=== PATIENT | female | born 1965 | race African-American/Black ===

== ENCOUNTER 2019-04-30 16:24 | Emergency (ER) | payer OTHER ==
[~2019-04-30] VITALS: Ht 177.8 cm; Wt 84.0 kg
[~2019-04-30 16:24] MED LIST: ACET325T9 PO; NAPR220C62 PO
[2019-04-30] MEDS ORDERED: IV NORMAL SALINE 1000ML BAG 1,000 ML IV SCH (18:39)
[2019-04-30] MEDS ORDERED: HYDROmorphone 2 MG/ML VIAL IV ONE ×2 (18:45→19:15)
[2019-04-30] MEDS ORDERED: ONDANSETRON PF 4 MG/2 ML VIAL. IVP ONE (18:45)
[2019-04-30 18:55] LABS: BASO % 1 % (0-3); EOS # 0.1 x10^3/uL (0.0-0.7); EOS % 2 % (0-3); HEMATOCRIT 41.4 % (36.0-47.0); HEMOGLOBIN 13.5 g/dL (12.0-15.5); LYMPH # 1.2 x10^3/uL (1.0-4.8); LYMPH % 22 % (24-48); MEAN CORPUSCULAR HEMOGLOBIN 30 pg (25-35); MEAN CORPUSCULAR HGB CONC 33 g/dL (31-37); MEAN CORPUSCULAR VOLUME 91 fL (79-100); MONO # 0.4 x10^3/uL (0.0-1.1); MONO % 8 % (0-9); NEUT # 3.8 x10^3/uL (1.8-7.7); NEUT % 68 % (31-73); PLATELET COUNT 343 x10^3/uL (140-400); RED BLOOD COUNT 4.57 x10^6/uL (3.50-5.40); WHITE BLOOD COUNT 5.6 x10^3/uL (4.0-11.0)
[2019-04-30 19:05] LABS: PROTHROMBIN TIME PATIENT 13.4 SEC (11.7-14.0)
[2019-04-30 19:42] LABS: CALCIUM 9.3 mg/dL (8.5-10.1); CREATININE 0.6 mg/dL (0.6-1.0); GFR 125.6; POTASSIUM 3.6 mmol/L (3.5-5.1)
[2019-04-30 19:47] LABS: ALBUMIN 3.1 g/dL (3.4-5.0); ALBUMIN/GLOBULIN RATIO 0.7 (1.0-1.7); C-REACTIVE PROTEIN 13.3 mg/L (0-3.3); TOTAL BILIRUBIN 0.3 mg/dL (0.2-1.0); TOTAL PROTEIN 7.3 g/dL (6.4-8.2)
[2019-04-30] MEDS ORDERED: OXYC1TAB15 PO (20:38)
--- NOTE | 2019-04-30 20:39 | PHYS DOC ---
Past Medical History Past Medical History: Hypertension, Other Additional Past Medical Histor: L LOWER LEG WOUND Past Surgical History: Hysterectomy, Other Additional Past Surgical Histo: KNEE/ANKLE Smoking Status: Current Every Day Smoker Additional Information: 1.5 CIGARETTES A DAY Alcohol Use: Occasionally Adult General Chief Complaint Chief Complaint: LOWEREXTREMITY INJURY [facility] HPI Patient is a 53 year old female who presents to the ED today complaining of 10 out of 10 left leg pain, patient states symptoms have been going on for 2 months. Patient reports having a wound on the left leg that began 2 months ago after she scratched her leg on a metal piece. Patient reports being seen in the hospital on April 07, 2019 and being admitted on that day, she reports she was discharged on April 21, 2019 and is currently following up with the wound clinic. Patient reports when she was discharged from the hospital she was given a prescription for oxycodone, she reports she ran out of the medications. She reports her next appointment with the wound clinic is Tuesday this week. Patient denies any fever, nausea, vomiting Review of Systems Review of Systems Constitutional: Denies fever or chills [] Eyes: Denies change in visual acuity, redness, or eye pain [] HENT: Denies nasal congestion or sore throat [] Respiratory: Denies cough or shortness of breath [] Cardiovascular: No additional information not addressed in HPI [] GI: Denies abdominal pain, nausea, vomiting, bloody stools or diarrhea [] : Denies dysuria or hematuria [] Musculoskeletal: Denies back pain or joint pain [] Integument: Reports pain to the left leg from a wound Neurologic: Denies headache, focal weakness or sensory changes [] All other systems were reviewed and found to be within normal limits, except as documented in this note. Current Medications Current Medications Current Medications Medications (Trade) Dose Ordered Sig/Gerald Start Time Stop Time Status Last Admin Dose Admin Hydromorphone HCl (Dilaudid) 1 mg 1X ONCE 04/30/19 19:15 04/30/19 19:16 DC 04/30/19 19:25 1 MG Linezolid/Dextrose 300 ml @ 300 mls/hr 1X ONCE 04/30/19 19:00 04/30/19 19:59 DC 04/30/19 19:00 300 MLS/HR Ondansetron HCl (Zofran) 4 mg 1X ONCE 04/30/19 18:45 04/30/19 18:46 DC 04/30/19 18:59 4 MG Sodium Chloride 1,000 ml @ 2,070 mls/hr Q29M 04/30/19 18:39 04/30/19 19:39 DC 04/30/19 18:59 2,070 MLS/HR Allergies Allergies Allergies Coded Allergies Type Severity Reaction Last Updated Verified No Known Drug Allergies 04/07/19 No Physical Exam Physical Exam Constitutional: Well developed, well nourished, no acute distress, non-toxic appearance. [] HENT: Normocephalic, atraumatic, bilateral external ears normal, oropharynx moist, no oral exudates, nose normal. [] Eyes: PERRLA, EOMI, conjunctiva normal, no discharge. [] Neck: Normal range of motion, no tenderness, supple, no stridor. [] Cardiovascular:Heart rate regular rhythm, no murmur [] Lungs & Thorax: Bilateral breath sounds clear to auscultation [] Abdomen: Bowel sounds normal, soft, no tenderness, no masses, no pulsatile m asses. [] Skin: Left lower extremity with a stage II wound moderate in size running from the solorio on the way to the back of the leg. Neurovascular exam is intact to the left leg. +2 left pedal pulse. Back: No tenderness, no CVA tenderness. [] Extremities: No tenderness, no cyanosis, no clubbing, ROM intact, no edema. [] Neurologic: Alert and oriented X 3, normal motor function, normal sensory function, no focal deficits noted. [] Psychologic: Patient is restless, crying Current Patient Data Vital Signs Vital Signs Date Time Temp Pulse Resp B/P (MAP) Pulse Ox O2 Delivery O2 Flow Rate FiO2 04/30/19 19:55 19 98 Room Air 04/30/19 16:43 98.7 100 187/74 (111) 98.7 Lab Values Laboratory Tests Test 04/30/19 17:44 04/30/19 19:19 White Blood Count 5.6 x10^3/uL (4.0-11.0) Red Blood Count 4.57 x10^6/uL (3.50-5.40) Hemoglobin 13.5 g/dL (12.0-15.5) Hematocrit 41.4 % (36.0-47.0) Mean Corpuscular Volume 91 fL (79-100) Mean Corpuscular Hemoglobin 30 pg (25-35) Mean Corpuscular Hemoglobin Concent 33 g/dL (31-37) Red Cell Distribution Width 15.0 % (11.5-14.5) H Platelet Count 343 x10^3/uL (140-400) Neutrophils (%) (Auto) 68 % (31-73) Lymphocytes (%) (Auto) 22 % (24-48) L Monocytes (%) (Auto) 8 % (0-9) Eosinophils (%) (Auto) 2 % (0-3) Basophils (%) (Auto) 1 % (0-3) Neutrophils # (Auto) 3.8 x10^3/uL (1.8-7.7) Lymphocytes # (Auto) 1.2 x10^3/uL (1.0-4.8) Monocytes # (Auto) 0.4 x10^3/uL (0.0-1.1) Eosinophils # (Auto) 0.1 x10^3/uL (0.0-0.7) Basophils # (Auto) 0.0 x10^3/uL (0.0-0.2) Erythrocyte Sedimentation Rate 21 (0-25) Prothrombin Time 13.4 SEC (11.7-14.0) Prothrombin Time INR 1.1 (0.8-1.1) Activated Partial Thromboplast Time 35 SEC (24-38) Lactic Acid Level 1.1 mmol/L (0.4-2.0) Sodium Level 142 mmol/L (136-145) Potassium Level 3.6 mmol/L (3.5-5.1) Chloride Level 104 mmol/L (98-107) Carbon Dioxide Level 28 mmol/L (21-32) Anion Gap 10 (6-14) Blood Urea Nitrogen 8 mg/dL (7-20) Creatinine 0.6 mg/dL (0.6-1.0) Estimated GFR (Cockcroft-Gault) 125.6 BUN/Creatinine Ratio 13 (6-20) Glucose Level 123 mg/dL (70-99) H Calcium Level 9.3 mg/dL (8.5-10.1) Total Bilirubin 0.3 mg/dL (0.2-1.0) Aspartate Amino Transferase (AST) 10 U/L (15-37) L Alanine Aminotransferase (ALT) 11 U/L (14-59) L Alkaline Phosphatase 74 U/L (46-116) C-Reactive Protein, Quantitative 13.3 mg/L (0-3.3) H Total Protein 7.3 g/dL (6.4-8.2) Albumin 3.1 g/dL (3.4-5.0) L Albumin/Globulin Ratio 0.7 (1.0-1.7) L Procalcitonin < 0.10 ng/mL (0.00-0.10) Laboratory Tests 04/30/19 17:44 Laboratory Tests 04/30/19 19:19 EKG EKG [] Radiology/Procedures Radiology/Procedures [] Course & Med Decision Making Course & Med Decision Making Pertinent Labs and Imaging studies reviewed. (See chart for details) This is a 53-year-old female patient presenting to the ED today with left leg pain from a wound she's had for the last 2 months. She was discharged from the hospital roughly 10 days ago with this wound with oxycodone and Zyvox antibiotics. She follows up with the wound clinic, her next appointment is on Tuesday this week. Patient's arrival to the ED crying. CBC is negative, CMP is negative, lactic is normal, CRP 13.3 but this is much lower than when patient was admitted in the hospital. Spoke to patient about her symptoms, recommended she goes home and follows up with the wound clinic on Tuesday as scheduled. Gave her prescription for oxycodone. Dragon Disclaimer Dragon Disclaimer This electronic medical record was generated, in whole or in part, using a voice recognition dictation system. Departure Departure Impression: Primary Impression: Left leg pain Additional Impression: Leg wound, left Disposition: HOME, SELF-CARE Condition: STABLE Referrals: NO PCP (PCP) Please follow-up with the wound clinic on Tuesday this week as scheduled Patient Instructions: Wound Care, [id number] Additional Instructions: You were evaluated in the emergency room for wound to the left leg as well as pain. Discontinue following up with the wound clinic as scheduled on Tuesday. Problem Qualifiers Additional Impression: Leg wound, left Encounter type: subsequent encounter Qualified Codes: S81.802D - Unspecified open wound, left lower leg, subsequent encounter GABRIEL REINA APRN Apr 30, 2019 20:39
[2019-04-30] MEDS ORDERED: oxyCODONE/APAP 5/325 1 TAB TABLET PO ONE (20:45)
[2019-04-30 20:52] VITALS: BP 192/81
== END 2019-04-30 21:09 | disposition home or self-care (01) ==
LOC: ER 16:24
DX: S81.802D Unspecified open wound, left lower leg, subsequent encounter (principal); M79.605 Pain in left leg; I10 Essential (primary) hypertension; F17.210 Nicotine dependence, cigarettes, uncomplicated; X58.XXXD Exposure to other specified factors, subsequent encounter
CPT/HCPCS: 36415; 80053; 83605; 84145; 85025; 85610; 85651; 85730; 86140; 87040; 96365; 96375; 99285; J1170; J2020; J2405; J7030

== ENCOUNTER → 2019-06-07 | Outpatient (CLI) | payer OTHER ==
[~2019-06-07] MED LIST changes: +OXYC1TAB15 PO
--- NOTE | 2019-06-07 08:41 | RAD ---
Bilateral lower extremity venous duplex ultrasound 06/07/2019 INDICATION: Left lower extremity wound Discussion: Ultrasound evaluation of the left lower extremity veins is performed including color Doppler imaging spectral analysis. No evidence of venous thrombosis is identified. Saphenofemoral junctions are patent. Great saphenous veins: Reflux in the bilateral great saphenous veins noted with up to 3.6 seconds of reflux time in the mid left great saphenous right saphenous vein. There is up to 2.6 seconds reflux in the left great saphenous vein. Right great saphenous vein measures 7 mm proximally, 4 mm in its midportion, and 4 mm distally. Left great saphenous vein measures 10 mm proximally, 4 mm in its midportion, and 4 mm distally. Anterior accessory saphenous veins Right: Present Left: Present Posterior accessory saphenous veins Right: Nonvisualized Left: Nonvisualized Perforators No significant thigh perforators were identified by the phlebotomy technologist. Left calf perforators were noted. 2 perforators are seen measuring 16 and 18 cm from the heel, and 4 mm each in diameter. Anteriorly there is a signal tester measuring 20 cm from the heel, also measuring 4 mm in diameter. No significant right-sided calf perforators were identified. IMPRESSION: 1. Reflux in the bilateral great saphenous veins 2. Left calf perforators as described Electronically signed by: Kenn Adler MD (06/07/2019 8:39 AM) [id number]
== END | disposition home or self-care (01) ==
LOC: US 06:41
PROVIDERS: ATTEND Preventive Medicine Undersea and Hyperbaric Medicine
DX: S81.802A Unspecified open wound, left lower leg, initial encounter (principal); X58.XXXA Exposure to other specified factors, initial encounter; Y93.89 Activity, other specified; Y92.89 Other specified places as the place of occurrence of the external cause; Y99.8 Other external cause status
CPT/HCPCS: 93970

== ENCOUNTER → 2019-08-02 | Outpatient (CLI) | payer OTHER ==
--- NOTE | 2019-08-02 10:29 | CARD ---
MR#: [id number] Date of Study: 08/02/2019 Ordering Physician: JACKSON IBARRA, Referring Physician: JACKSON IBARRA Tech: Radha Garcia RDCS APPROVED REPORT EXAM: Two-dimensional and M-mode echocardiogram with Doppler and color Doppler. Other Information Quality : Good INDICATION Hypertension/HCVD Murmur 2D DIMENSIONS RVDd2.3 (2.9-3.5cm)Left Atrium(2D)4.0 (1.6-4.0cm) IVSd1.8 (0.7-1.1cm)Aortic Root(2D)3.0 (2.0-3.7cm) LVDd4.2 (3.9-5.9cm)LVOT Diameter2.1 (1.8-2.4cm) PWd1.8 (0.7-1.1cm)LVDs1.8 (2.5-4.0cm) FS (%) 30.0 %SV69.9 ml LVEF(%)60.0 (>50%) Aortic Valve AoV Peak Lj.155.1cm/sAoV VTI29.7cm AO Peak GR.9.6mmHgLVOT Peak Lj.92.2cm/s AO Mean GR.4mmHgAVA (VMAX)2.09cm2 CLEMENTE (VTI)2.80cm2 Mitral Valve MV E Ozklyihc91.2cm/sMV DECEL [id number] MV A Lmgptnco60.9cm/sE/A Ratio1.4 Tricuspid Valve TR P. Oiqidtof411hd/sRAP IEAJWLBE7iyCl TR Peak Gr.03yoXwMMDB94yoRl Pulmonary Vein S1 Jhcnymit59.6cm/sD2 Oxqqrizg13.5cm/s LEFT VENTRICLE The left ventricle is normal size. There is moderate concentric left ventricular hypertrophy. The lef t ventricular systolic function is normal. The Ejection Fraction is 60-65%. There is normal LV segmen ranulfo wall motion. The left ventricular diastolic function and filling is normal for age. RIGHT VENTRICLE The right ventricle is normal size. The right ventricular systolic function is normal. ATRIA The left atrium is mildly dilated. The right atrium size is normal. The interatrial septum is intact with no evidence for an atrial septal defect or patent foramen ovale as noted on 2-D or Doppler imagi ng. AORTIC VALVE The aortic valve is normal in structure and function. Doppler and Color Flow revealed no significant aortic regurgitation. There is no significant aortic valvular stenosis. MITRAL VALVE The mitral valve is mildly thickened but opens well. There is no evidence of mitral valve prolapse. T here is no mitral valve stenosis. Doppler and Color-flow revealed trace to mild mitral regurgitation. TRICUSPID VALVE The tricuspid valve is normal in structure and function. Doppler and Color Flow revealed mild tricusp id regurgitation. The PA pressure was estimated at 30 mmHg. There is no tricuspid valve stenosis. PULMONIC VALVE The pulmonary valve is normal in structure and function. Doppler and Color Flow revealed mild pulmoni c valvular regurgitation. There is no pulmonic valvular stenosis. GREAT VESSELS The aortic root is normal in size. The ascending aorta is mildly dilated at 3.3. cm. The IVC is benjamin l in size and collapses >50% with inspiration. PERICARDIAL EFFUSION There is no evidence of significant pericardial effusion. Critical Notification Critical Value: No <Conclusion> The left ventricular systolic function is normal. The Ejection Fraction is 60-65%. There is normal LV segmental wall motion. Trace to mild mitral regurgitation. Mild tricuspid regurgitation. The PA pressure was estimated at 30 mmHg. There is no evidence of significant pericardial effusion. Signed by : Jackson Ibarra, Electronically Approved : 08/02/2019 10:28:57
== END | disposition home or self-care (01) ==
LOC: ECHO 09:27
PROVIDERS: ATTEND Internal Medicine Cardiovascular Disease
DX: I08.8 Other rheumatic multiple valve diseases (principal); I11.9 Hypertensive heart disease without heart failure
CPT/HCPCS: 93306

== ENCOUNTER 2020-01-31 11:35 | Emergency (ER) | payer OTHER ==
[~2020-01-31] VITALS: Ht 177.8 cm; Wt 87.0 kg
[2020-01-31] MEDS ORDERED: hydrALAZINE 25 MG TABLET PO ONE (11:55)
[2020-01-31] MEDS ORDERED: MORPHINE SULFATE 10 MG/ML VIAL. IV ONE (12:00)
[2020-01-31 12:09] LABS: BASO # 0.1 x10^3/uL (0.0-0.2); BASO % 2 % (0-3); EOS # 0.3 x10^3/uL (0.0-0.7); EOS % 9 % (0-3); HEMATOCRIT 40.9 % (36.0-47.0); HEMOGLOBIN 13.8 g/dL (12.0-15.5); LYMPH # 1.6 x10^3/uL (1.0-4.8); LYMPH % 43 % (24-48); MEAN CORPUSCULAR HEMOGLOBIN 31 pg (25-35); MEAN CORPUSCULAR HGB CONC 34 g/dL (31-37); MEAN CORPUSCULAR VOLUME 91 fL (79-100); MONO # 0.3 x10^3/uL (0.0-1.1); MONO % 8 % (0-9); NEUT # 1.5 x10^3/uL (1.8-7.7); NEUT % 39 % (31-73); PLATELET COUNT 175 x10^3/uL (140-400); RED BLOOD COUNT 4.52 x10^6/uL (3.50-5.40); RED CELL DISTRIBUTION WIDTH 13.5 % (11.5-14.5); WHITE BLOOD COUNT 3.8 x10^3/uL (4.0-11.0)
--- NOTE | 2020-01-31 12:12 | ED.ADGEN ---
Past Medical History Past Medical History: Hypertension, Other Additional Past Medical Histor: L LOWER LEG WOUND Past Surgical History: Hysterectomy, Other Additional Past Surgical Histo: KNEE/ANKLE Smoking Status: Current Every Day Smoker Alcohol Use: Occasionally General Adult EDM: Chief Complaint: HYPERTENSION HPI: HPI: Patient is a 54 year old female coming by EMS for pain in her right arm pain extends from the back of her shoulder down to her arm, denies any chest pain, shortness of breath. Is able to feel sensation and denies loss of loss of movement. Patient works as a [employer] and knows the pain a couple of days ago but is gradually gotten worse to where she cannot tolerate today. No injuries or heavy lifting. Review of Systems: Review of Systems: Constitutional: Denies fever or chills. [] Eyes: Denies change in visual acuity. [] HENT: Denies nasal congestion or sore throat. [] Respiratory: Denies cough or shortness of breath. [] Cardiovascular: Denies chest pain or edema. [] GI: Denies abdominal pain, nausea, vomiting, bloody stools or diarrhea. [] : Denies dysuria. [] Musculoskeletal: Denies back pain or joint pain. [] Integument: Denies rash. [] Neurologic: Denies headache, focal weakness or sensory changes. [] Endocrine: Denies polyuria or polydipsia. [] Lymphatic: Denies swollen glands. [] Psychiatric: Denies depression or anxiety. [] Current Medications: Current Medications Medications (Trade) Dose Ordered Sig/Gerald Start Time Stop Time Status Last Admin Dose Admin Hydralazine HCl (Apresoline) 25 mg 1X ONCE 01/31/20 11:55 01/31/20 11:59 DC 01/31/20 12:03 25 MG Morphine Sulfate (Morphine Sulfate) 5 mg 1X ONCE 01/31/20 12:00 01/31/20 12:01 DC 01/31/20 11:59 5 MG Allergies: Allergies: Allergies Coded Allergies Type Severity Reaction Last Updated Verified No Known Drug Allergies 04/07/19 No Physical Exam: PE: Constitutional: Well developed, well nourished, no acute distress, non-toxic appearance. [] HENT: Normocephalic, atraumatic, bilateral external ears normal, oropharynx moist, no oral exudates, nose normal. [] Eyes: PERRLA, EOMI, conjunctiva normal, no discharge. [] Neck: Normal range of motion, no tenderness, supple, no stridor. [] Cardiovascular:Heart rate regular rhythm, no murmur [] Lungs & Thorax: Bilateral breath sounds clear to auscultation [] Abdomen: Bowel sounds normal, soft, no tenderness, no masses, no pulsatile masses. [] Skin: Warm, dry, no erythema, no rash. [] Back: No tenderness, no CVA tenderness. [] Extremities: No tenderness, no cyanosis, no clubbing, ROM intact, no edema. [] Neurologic: Alert and oriented X 3, normal motor function, normal sensory fun ction, no focal deficits noted. [] Psychologic: Affect normal, judgement normal, mood normal. [] Current Patient Data: Labs: Laboratory Tests Test 01/31/20 11:44 White Blood Count 3.8 x10^3/uL (4.0-11.0) L Red Blood Count 4.52 x10^6/uL (3.50-5.40) Hemoglobin 13.8 g/dL (12.0-15.5) Hematocrit 40.9 % (36.0-47.0) Mean Corpuscular Volume 91 fL (79-100) Mean Corpuscular Hemoglobin 31 pg (25-35) Mean Corpuscular Hemoglobin Concent 34 g/dL (31-37) Red Cell Distribution Width 13.5 % (11.5-14.5) Platelet Count 175 x10^3/uL (140-400) Neutrophils (%) (Auto) 39 % (31-73) Lymphocytes (%) (Auto) 43 % (24-48) Monocytes (%) (Auto) 8 % (0-9) Eosinophils (%) (Auto) 9 % (0-3) H Basophils (%) (Auto) 2 % (0-3) Neutrophils # (Auto) 1.5 x10^3/uL (1.8-7.7) L Lymphocytes # (Auto) 1.6 x10^3/uL (1.0-4.8) Monocytes # (Auto) 0.3 x10^3/uL (0.0-1.1) Eosinophils # (Auto) 0.3 x10^3/uL (0.0-0.7) Basophils # (Auto) 0.1 x10^3/uL (0.0-0.2) D-Dimer (Luz) < 0.27 ug/mlFEU Sodium Level 144 mmol/L (136-145) Potassium Level 3.4 mmol/L (3.5-5.1) L Chloride Level 105 mmol/L (98-107) Carbon Dioxide Level 31 mmol/L (21-32) Anion Gap 8 (6-14) Blood Urea Nitrogen 18 mg/dL (7-20) Creatinine 0.7 mg/dL (0.6-1.0) Estimated GFR (Cockcroft-Gault) 104.7 BUN/Creatinine Ratio 26 (6-20) H Glucose Level 92 mg/dL (70-99) Calcium Level 9.0 mg/dL (8.5-10.1) Total Bilirubin 0.7 mg/dL (0.2-1.0) Aspartate Amino Transferase (AST) 14 U/L (15-37) L Alanine Aminotransferase (ALT) 26 U/L (14-59) Alkaline Phosphatase 58 U/L (46-116) Troponin I Quantitative < 0.017 ng/mL (0.000-0.055) UQ-Kbr-I-Type Natriuretic Peptide 528 pg/mL (0-124) H Total Protein 7.2 g/dL (6.4-8.2) Albumin 3.9 g/dL (3.4-5.0) Albumin/Globulin Ratio 1.2 (1.0-1.7) Laboratory Tests 01/31/20 11:44 Laboratory Tests 01/31/20 11:44 Vital Signs: Vital Signs Date Time Temp Pulse Resp B/P (MAP) Pulse Ox O2 Delivery O2 Flow Rate FiO2 01/31/20 13:30 58 99 01/31/20 12:03 258/122 01/31/20 11:59 12 01/31/20 11:35 98.2 Room Air 98.2 EKG: EKG: Normal sinus rhythm, heart rate 77, borderline left axis deviation, no ST elevation depression, T wave inversion in V6 [] Heart Score: Risk Factors: Risk Factors: DM, Current or recent (<one month) smoker, HTN, HLP, family history of CAD, obesity. Risk Scores: Score 0 - 3: 2.5% MACE over next 6 weeks - Discharge Home Score 4 - 6: 20.3% MACE over next 6 weeks - Admit for Clinical Observation Score 7 - 10: 72.7% MACE over next 6 weeks - Early Invasive Strategies Radiology/Procedures: Radiology/Procedures: PROCEDURE: CHEST PA LATERAL, CERVICAL SPINE 5V STUDY DATE: 01/31/2020 CLINICAL INDICATION / HISTORY: Reason: radiculopathy, HTN / Spl. Instructions: / History: . TECHNIQUE: 5 VIEWS: AP, lateral, bilateral obliques and odontoid COMPARISON: None FINDINGS: Alignment is within normal limits. There is straightening of the cervical spine. There is mild disc space narrowing at C5-C6 and to a lesser extent at C6-C7. Vertebral body heights and disc spaces are otherwise well maintained. The atlantoaxial joint is well maintained. No fracture or subluxation is identified. Prevertebral and paraspinous soft tissues are unremarkable. IMPRESSION: Mild degenerative change in the mid cervical spine, primarily at C5-C6. No acute or aggressive osseous lesions seen. EXAM: CHEST PA LATERAL INDICATION: Reason: HTN . TECHNIQUE: PA and lateral views COMPARISON: Two-view chest of 11/09/2007 FINDINGS: Mild cardiomegaly is present. Slightly greater fullness to the left atrium is apparent on the lateral view. Great vessels show tortuosity of the thoracic aorta. Calcified left hilar lymph nodes are redemonstrated.. The lungs are clear. There is no pleural effusion or pneumothorax. There are no significant osseous abnormalities. Soft tissues show large, pendulous breasts. IMPRESSION: Mild cardiomegaly and aortic tortuosity. No acute cardiopulmonary disease.[] Course & Med Decision Making: Course & Med Decision Making Pertinent Labs and Imaging studies reviewed. (See chart for details) pain improved, blood pressure reduced to 190s over 90s patient feeling better. No life-threatening cause of pain, consistent with x-ray findings of narrowing of C6 nerve root. Discussed return precautions and follow-up with primary care for evaluation of resolution of radicular pain and blood pressure monitoring [] Dragon Disclaimer: Mychal Disclaimer: This electronic medical record was generated, in whole or in part, using a voice recognition dictation system. Departure Departure Impression: Primary Impression: HTN (hypertension) Additional Impression: Cervical radiculopathy at C6 Disposition: 01 DC HOME SELF CARE/HOMELESS Condition: STABLE Referrals: Kahlil HILLS MD (PCP) Patient Instructions: Cervical Radiculopathy Scripts Tramadol Hcl (TRAMADOL HCL) 50 Mg Tablet 50 MG PO Q6HRS PRN for PAIN for 5 Days, #15 TAB Prov: PEPITO COKER MD 01/31/20 Problem Qualifiers PEPITO COKER MD Jan 31, 2020 12:12
[2020-01-31 12:20] LABS: CREATININE 0.7 mg/dL (0.6-1.0); GFR 104.7; POTASSIUM 3.4 mmol/L (3.5-5.1)
[2020-01-31 12:33] LABS: ALBUMIN 3.9 g/dL (3.4-5.0); ALBUMIN/GLOBULIN RATIO 1.2 (1.0-1.7); TOTAL BILIRUBIN 0.7 mg/dL (0.2-1.0); TOTAL PROTEIN 7.2 g/dL (6.4-8.2)
--- NOTE | 2020-01-31 12:49 | RAD ---
PROCEDURE: CHEST PA LATERAL, CERVICAL SPINE 5V STUDY DATE: 01/31/2020 CLINICAL INDICATION / HISTORY: Reason: radiculopathy, HTN / Spl. Instructions: / History: . TECHNIQUE: 5 VIEWS: AP, lateral, bilateral obliques and odontoid COMPARISON: None FINDINGS: Alignment is within normal limits. There is straightening of the cervical spine. There is mild disc space narrowing at C5-C6 and to a lesser extent at C6-C7. Vertebral body heights and disc spaces are otherwise well maintained. The atlantoaxial joint is well maintained. No fracture or subluxation is identified. Prevertebral and paraspinous soft tissues are unremarkable. IMPRESSION: Mild degenerative change in the mid cervical spine, primarily at C5-C6. No acute or aggressive osseous lesions seen. EXAM: CHEST PA LATERAL INDICATION: Reason: HTN . TECHNIQUE: PA and lateral views COMPARISON: Two-view chest of 11/09/2007 FINDINGS: Mild cardiomegaly is present. Slightly greater fullness to the left atrium is apparent on the lateral view. Great vessels show tortuosity of the thoracic aorta. Calcified left hilar lymph nodes are redemonstrated.. The lungs are clear. There is no pleural effusion or pneumothorax. There are no significant osseous abnormalities. Soft tissues show large, pendulous breasts. IMPRESSION: Mild cardiomegaly and aortic tortuosity. No acute cardiopulmonary disease. Electronically signed by: Elias Dean MD (01/31/2020 12:46 PM) [id number]
[2020-01-31 14:00] VITALS: BP 199/91
[2020-01-31] MEDS ORDERED: TRAM50TA PO (14:08)
== END 2020-01-31 14:27 | disposition home or self-care (01) ==
LOC: ER 11:35
DX: M54.12 Radiculopathy, cervical region (principal); I10 Essential (primary) hypertension; F17.200 Nicotine dependence, unspecified, uncomplicated
CPT/HCPCS: 36415; 71046; 72050; 80053; 83880; 84484; 85025; 85379; 96374; 99285; J2270